=== PATIENT | male | born 1960 | race Hispanic/Latino ===

== ENCOUNTER 2019-05-12 09:25 | Emergency (ER) | payer OTHER, SELFPAY ==
[2019-05-12] MEDS ORDERED: Adacel (T-DAP) 0.5 ML SYRINGE ONE (09:40)
== END 2019-05-12 09:55 | disposition home or self-care (01) ==
LOC: SCSER 09:25
DX: S01.81XA Laceration without foreign body of other part of head, initial encounter (principal); W22.8XXA Striking against or struck by other objects, initial encounter
CPT/HCPCS: 12011; 90471; 90715